=== PATIENT | male | born 1945 | race Caucasian/White ===

== ENCOUNTER 2018-10-12 10:29 | Outpatient (CLI) | payer MEDICARE ==
--- NOTE | 2018-10-12 12:18 | RAD ---
[facility] VIEW ONLY: Date: 10/12/18 HISTORY: MRI safety screening. FINDINGS/IMPRESSION: No radiopaque or metallic foreign body seen. POS: OFF
--- NOTE | 2018-10-12 14:10 | MRI ---
MRI Lumbar Spine WO Con HISTORY:Back pain with bilateral leg radiculopathy. COMPARISON: None. FINDINGS: There is scoliotic change convex to the right. The vertebral bodies are normal in height. G eneralized disc desiccation changes are seen. No significant periaortic adenopathy. The visualized portions of the kidneys are normal. T12-L1: Degenerative facet changes without canal or foraminal narrowing. L1-2: Disc bulge with asymmetric left-sided facet and ligamentous hypertrophic changes. The canal is mildly stenotic and there is mild left foraminal narrowing. L2-3: Facet and ligamentous hypertrophic changes are present which in conjunction with disc bulging c auses a moderately severe degree of canal stenosis. Changes are worse on the left side. There is also moderate left foraminal narrowing. L3-4: Disc bulge as well as facet and ligamentous hypertrophic changes are associated with the severe degree of canal stenosis. Marked right foraminal narrowing is seen with mild left-sided foraminal stenosis. L4-5: Prominent degenerative and facet changes at this level are associated with a moderately severe degree of canal stenosis. Mild bilateral foraminal narrowing is also present. L5-S1: Asymmetric right-sided facet changes are present with mild right foraminal narrowing. No centr al canal stenosis. IMPRESSION: Multilevel areas of canal and foraminal stenosis, the most severe canal stenosis is at L3 -4.
== END 2018-10-12 10:30 | disposition home or self-care (01) ==
LOC: BICMRI 10:29
PROVIDERS: ATTEND Orthopaedic Surgery
DX: M54.16 Radiculopathy, lumbar region (principal); M48.061 Spinal stenosis, lumbar region without neurogenic claudication; M48.07 Spinal stenosis, lumbosacral region
CPT/HCPCS: 70210; 72148

== ENCOUNTER 2019-03-15 08:26 | Outpatient (CLI) | payer MEDICARE ==
[2019-03-15 15:11] LABS: Prothrombin Time 13.4 SEC (12.0-14.7)
[2019-03-15 15:17] LABS: Bacteria/HPF None Seen HPF (None Seen); Bilirubin Negative (Negative); Blood, Urine Negative (Negative); Clarity Clear (Clear); Glucose, Urine (Dipstick) 150 mg/dL (Negative); Leukocyte 25 Leu/uL (Negative); Mucous/LPF 2+ LPF (<2+); Nitrite Negative (Negative); Protein, Urine (Dipstick) 50 mg/dL (Neg-Trace); RBC/HPF 0-3 HPF (0-3); Squamous Epithelial 0-3 HPF (0-3); Urobilinogen Normal mg/dL (Less than 2); WBC/HPF 0-3 HPF (0-3)
[2019-03-15 15:26] LABS: #Eosinphils 0.3 thou/uL (0.0-0.7); #Lymphocytes 1.6 thou/uL (1.20-3.40); #Monocytes 0.5 thou/uL (0.11-0.59); #Neutrophils 4.4 thou/uL (1.40-6.50); %Basophils 0.2 % (0.0-1.0); %Eosinophils 3.8 % (0.0-10.0); %Lymphocytes 23.3 % (21.0-51.0); %Monocytes 7.1 % (0.0-10.0); %Neutrophils 65.7 % (42.0-75.0); Hemoglobin 11.7 g/dL (14.0-18.0); Mean Corpuscular HGB CONC 32.9 g/dL (32.0-36.0); Mean Corpuscular Hemoglobin 29.1 pg (27.0-31.0); Mean Corpuscular Volume 88.6 fL (78.0-98.0); Platelet Count 313 thou/uL (130-400); Red Blood Cell (RBC) Count 4.01 mill/uL (4.70-6.10); White Blood Cell (WBC) Count 6.7 thou/uL (4.8-10.8)
[2019-03-15 15:28] LABS: Anion Gap 13 mmol/L (10-20); BUN (Urea Nitrogen) 24 mg/dL (8.4-25.7); Calc. Creatinine Clearance 0 mL/min (70-130); Calcium 9.7 mg/dL (7.8-10.44); Carbon Dioxide 24 mmol/L (23-31); Chloride 104 mmol/L (98-107); Estimated GFR-MDRD 55; Glucose 123 mg/dL (83-110); Potassium 4.8 mmol/L (3.5-5.1); Sodium 136 mmol/L (136-145)
== END 2019-03-15 08:27 | disposition home or self-care (01) ==
LOC: LABBT 08:26
PROVIDERS: ATTEND Orthopaedic Surgery
DX: Z01.812 Encounter for preprocedural laboratory examination (principal); M17.12 Unilateral primary osteoarthritis, left knee
CPT/HCPCS: 80048; 81001; 85025; 85610; 86850; 86900; 86901; 87081

== ENCOUNTER 2019-03-20 08:57 | Day surgery (SDC) | payer MEDICARE ==
[2019-03-15 12:36] VITALS: BMI 35.2
[2019-03-20] MEDS ORDERED: Tranexamic Acid 1,000 MG/10 ML VIAL ONE (09:32)
[2019-03-20] MEDS ORDERED: Sodium Chloride 0.9% 100 ML ONE (09:32)
[2019-03-20] MEDS ORDERED: Vancomycin HCl 1.5 GM in Sodium Chloride 0.9% 250 ML 300 ML IVPB SCH (09:45)
[2019-03-20] MEDS ORDERED: HYDROcodone/Acetaminophen 10/325 mg Tablet PO PRN (11:15)
[2019-03-20] MEDS ORDERED: diphenhydrAMINE 25 MG CAP PO PRN ×2 (11:15→11:16)
[2019-03-20] MEDS ORDERED: Acetaminophen 325 MG TAB PO PRN (11:15)
[2019-03-20] MEDS ORDERED: Ondansetron PF 4 MG/2 ML Vial IVP PRN (11:15)
[2019-03-20] MEDS ORDERED: Promethazine HCl 25 MG/ML VIAL IM PRN ×2 (11:15→15:39)
[2019-03-20] MEDS ORDERED: Zolpidem Tartrate 5 MG TAB PO PRN (11:15)
[2019-03-20] MEDS ORDERED: Fentanyl 100 MCG/2 ML VIAL ONE ×4 (13:40→16:10)
[2019-03-20] MEDS ORDERED: Bupivacaine HCl 0.5%/Epinephrine 1:200,000/PF 30 ml Vial ONE (15:01)
[2019-03-20] MEDS ORDERED: Ondansetron HCl/PF 4 MG/2 ML Vial IVP PRN (15:39)
[2019-03-20] MEDS ORDERED: Promethazine HCl 25 MG/ML VIAL SLOW IVP PRN (15:39)
--- NOTE | 2019-03-20 16:17 | RAD ---
2 views left knee: 03/20/2019 COMPARISON: None HISTORY: Evaluate knee following arthroplasty FINDINGS: Total knee arthroplasty present on the left. Postoperative gas and fluid noted in the supra patellar bursa. No evidence for acute fracture or dislocation. IMPRESSION: Radiographic evidence of recent left total knee arthroplasty. No acute abnormality.
[2019-03-20] MEDS ORDERED: HYDROcodone/Acetaminophen 10/325 mg Tablet ONE (16:26)
[2019-03-20] MEDS: metFORMIN 500 MG TAB PO SCH (18:15)
[2019-03-20] MEDS: Clindamycin/D5W 900 MG in Premix Bag 1 BAG IVPB SCH ×2 (18:37→23:49)
[2019-03-20] MEDS: Sodium Chloride 0.9% 1,000 ML IV SCH ×2 (18:37→20:39)
--- NOTE | 2019-03-20 19:47 | OP ---
DATE OF PROCEDURE: 03/20/2019 PREOPERATIVE DIAGNOSIS: End-stage tricompartmental osteoarthritis, left knee. POSTOPERATIVE DIAGNOSIS: End-stage tricompartmental osteoarthritis, left knee. PROCEDURE PERFORMED: Cemented cruciate-sparing computer-assisted navigated left total knee arthroplasty. SIGN WRITER LETTERER OR PAINTER: Tahir Weiss PA-C. ANESTHESIA: General via LMA. COMPONENTS USED: [facility] size 6 cruciate sparing cemented primary femoral component with a size 6 primary cemented tibial base plate, 9 mm polyethylene fixed bearing insert, and A38 patella button. TOURNIQUET TIME: 61 minutes at 300 mmHg. INPUT: 1 L of crystalloid. OUTPUT: Not measured. No Castillo placed. ESTIMATED BLOOD LOSS: Less than 100. FINDINGS: End-stage severe degenerative tricompartmental disease, [id number] arthrosis, periarticular osteophyte formation, large serous effusion, hypertrophic synovium, changes consistent with degenerative genu varum. DRAINS: None. SPECIMENS: None. COMPLICATIONS: None. COUNTS: Correct. INDICATIONS FOR SURGERY: Bhavik is a 73-year-old white male, who has had progressive left knee pain and problem with standing and walking for the last 5 to 7 years. He has failed conservative management, elected to proceed with total knee arthroplasty as definitive treatment of his pain. PROCEDURE IN DETAIL: After informed consent was obtained in the preoperative holding area, the patient was taken to the operative suite where general anesthesia was induced. Once adequate level of general anesthesia was obtained, the patient was positioned and a well-padded tourniquet was placed around the left proximal thigh. The left lower extremity was then prepped and draped in the usual sterile fashion. Prior to exsanguination, a time-out was called and all members of the surgical team agreed upon site, surgeon, and patient. The extremity was then exsanguinated and the tourniquet was raised. A midline longitudinal incision was then made directly over the patella extending 2 fingerbreadths above the superior pole of the patella and 2 fingerbreadths inferior to the inferior patellar pole of the patella. Deeper subcutaneous layers were dissected sharply and local bleeding was controlled with Bovie electrocautery. A quad tendon longitudinal split was then made sharply and a median parapatellar arthrotomy was carried out both sharp and with Bovie electrocautery, carried down to 1 fingerbreadth medial to the tibial tubercle. The knee was then placed into flexion and the patella was everted nicely, and a copious fat pad ectomy was performed allowing for greater exposure of the tibia. The computer-assisted distal femoral fiducial was then placed and pinned firmly, and the distal femoral cutting guide was pinned firmly into place. The oscillating saw was then used to remove the appropriate amount of bone. The 4-in-1 cutting block was then placed on the distal femur and the oscillating saw was used to remove the appropriate amount of bone off the anterior, posterior, and chamfer cuts. After completion of bone cuts, the anterior cruciate ligament was resected sharply and the posterior cruciate ligament retractor was placed and the tibia was subluxed for better exposure. Partial meniscectomies were carried out, and the tibial computer-assisted fiducial was pinned, and the cutting guide was placed. Oscillating saw was then used to remove the bone, with Hohmann retractors used to take care and protect the collateral ligaments. After the tibial resection was performed, a laminar wildlife biology internship was placed in between the freshened bone cuts. The knee placed at 90 degrees and further bilateral meniscectomies were carried out, and the curved osteotome and curettage were used to remove any excess bone spurs in the posterior compartment. The trial femoral component, tibial baseplate were placed with the appropriate polyethylene trial insert with an appropriate polyethylene spacer and patellar button. The knee was taken through full range of motion with flexion and extension from 0 to 90 degrees and patellar broach squarely in the trochlea without any squinting or subluxation noted. The knee was also stable to varus and valgus stressing at 0, 15, 45, and 90 degrees of flexion. The drawer was negative. All trial components were then removed and the keel punch was used to provide the appropriate defect in the tibia with a mallet. The freshened bone cuts were copiously irrigated with pulsatile lavage of about 1.5 L to remove all excess debris. The freshened bone cuts were then dried with suction and lap sponge. The knee was placed in flexion and retractors were placed to provide access to all bone cuts. Tobramycin-impregnated methyl methacrylate cement was then placed on the freshened bone cuts and implants which were malleted firmly into place. Curettage and [place] elevators were used to remove any excess bone cement. The knee was placed into full extension and the patellar button was placed under compression, and the cement was allowed to cure. Once completed, the components were again taken through full range of motion and copious irrigation of the knee was carried out with another liter of normal saline. All components were inspected fully with full range of motion and varus and valgus stressing. There was no laxity noted and full extension was observed clinically. Primary closure was accomplished with #2 interrupted Vicryl stitch of the arthrotomy defect. This was oversewn with a #2 running Quill barbed stitch. The gravitational platelet system was then injected into the arthrotomy prior to closure. The subcutaneous layer was then closed with a running 0 barbed Monocryl stitch and skin closure accomplished with a running subcuticular 3-0 Monocryl barbed Quill stitch and augmented with cement on the skin. Tourniquet was lowered. Good spontaneous return of distal pulses was noted clinically and a sterile dressing was applied to the incision. The procedure was terminated without any complications. The patient was awakened in the operative suite, and the patient was taken to the recovery room in stable condition. Job ID: [id number]
[2019-03-20] MEDS: Senokot S 8.6-50 MG TAB PO SCH (20:37)
[2019-03-20] MEDS: Carvedilol 3.125 MG TAB PO SCH (20:37)
[2019-03-20] MEDS: Terazosin HCl 5 MG CAP PO SCH ×2 (20:37→20:38)
[2019-03-20] MEDS: Aspirin 81 mg Enteric Coated Tablet PO SCH ×2 (20:37→20:38)
[2019-03-20] MEDS: Atorvastatin Calcium 40 MG TAB PO SCH (20:37)
[2019-03-20] MEDS: Ferrous Gluconate 324 MG TAB PO SCH (20:37)
[2019-03-20] MEDS: Amlodipine 10 MG TAB PO SCH (20:38)
[2019-03-20] MEDS: Finasteride 5 MG TAB PO SCH (20:38)
[2019-03-20] MEDS ORDERED: Non-Formulary Item 1 EACH (Insulin Detemir [Levemir Flextouch] 20 UNIT) SC SCH (21:00)
[2019-03-20] MEDS: Insulin Glargine 20 UNITS in Pre-Filled Syringe 1 EACH SC SCH (21:55)
[2019-03-20] MEDS: Gabapentin 400 MG CAP PO SCH (21:57)
[2019-03-20] MEDS: HYDROcodone/Acetaminophen 10/325 mg Tablet PO PRN (21:58)
[2019-03-20] MEDS ORDERED: ePHEDrine 50 MG/ML VIAL ONE (22:05)
[2019-03-20] MEDS ORDERED: PROPOFOL 200 MG/20 ML VIAL ONE (22:05)
[2019-03-20] MEDS ORDERED: Lidocaine 1% PF 5 ML VIAL ONE (22:05)
[2019-03-20] MEDS ORDERED: Labetalol HCl 100 MG/20 ML VIAL ONE (22:05)
[2019-03-21] MEDS: HYDROcodone/Acetaminophen 10/325 mg Tablet PO PRN ×5 (02:36→20:48)
[2019-03-21 05:54] LABS: Hemoglobin 10.4 g/dL (14.0-18.0); Mean Corpuscular HGB CONC 32.8 g/dL (32.0-36.0); Mean Corpuscular Hemoglobin 28.9 pg (27.0-31.0); Mean Platelet Volume 7.6 fL (7.4-10.4); Platelet Count 271 thou/uL (130-400); RBC Distribution Width 13.8 % (11.5-14.5); Red Blood Cell (RBC) Count 3.59 mill/uL (4.70-6.10); White Blood Cell (WBC) Count 9.7 thou/uL (4.8-10.8)
[2019-03-21] MEDS: metFORMIN 500 MG TAB PO SCH ×2 (08:43→17:43)
[2019-03-21] MEDS: Gabapentin 400 MG CAP PO SCH ×2 (08:43→20:44)
[2019-03-21] MEDS: Multivitamin W/ Minerals 1 TAB PO SCH (08:44)
[2019-03-21] MEDS: Ferrous Gluconate 324 MG TAB PO SCH ×2 (08:44→20:44)
[2019-03-21] MEDS: Aspirin 81 mg Enteric Coated Tablet PO SCH ×3 (08:44→20:45)
[2019-03-21] MEDS: Isosorbide Mononitrate (ER) 30 MG TAB PO SCH (08:44)
[2019-03-21] MEDS: Carvedilol 3.125 MG TAB PO SCH ×2 (08:44→20:44)
[2019-03-21] MEDS: Losartan 25 MG TAB PO SCH (08:45)
[2019-03-21] MEDS: Senokot S 8.6-50 MG TAB PO SCH ×2 (08:45→20:43)
[2019-03-21] MEDS ORDERED: Gabapentin 400 MG CAP PO SCH (09:00)
[2019-03-21] MEDS ORDERED: Polyethylene Glycol 3350 17 GM Packet PO PRN (09:41)
--- NOTE | 2019-03-21 10:12 | PRG ---
DATE OF SERVICE: 03/21/2019 SUBJECTIVE: Bhavik is a 73-year-old white male, who is postop day 1 from a left total knee arthroplasty. He is doing relatively well this morning. He has no complaints, and he is sitting up for a bowel movement. He has had some gas. OBJECTIVE: VITAL SIGNS: Temperature 98.3, pulse is 56, respiratory rate is 20, and blood pressure is 147/83. GENERAL: He is alert and oriented to person, place, time, and situation. Responsive and appropriate with examiner. Grossly nonfocal. SKIN: His incision is clean. No strikethrough. No erythema. EXTREMITIES: He is neurovascularly intact in both lower extremities. LABORATORY DATA: Hemoglobin and hematocrit 10.4 and 31.6. IMPRESSION: A 73-year-old male, postop day 1, left total knee arthroplasty, doing well. PLAN: Continue current care. Probable discharge tomorrow if his ambulatory effort improves. Job ID: [id number]
[2019-03-21] MEDS: Sodium Chloride 0.9% 1,000 ML IV SCH ×3 (13:49→22:33)
[2019-03-21] MEDS ORDERED: HumaLOG 300 UNITS/3 ML VIAL SC PRN (14:49)
[2019-03-21] MEDS ORDERED: Dextrose 50% Abboject 50 ML SYRINGE SLOW IVP PRN (14:49)
[2019-03-21] MEDS ORDERED: Dextrose 5% in Water 1,000 ML IV PRN (14:49)
[2019-03-21] MEDS ORDERED: Milk Of Magnesia 30 ML UDCUP PO SCH (15:00)
--- NOTE | 2019-03-21 16:19 | CON ---
DATE OF CONSULTATION: 03/21/2019 PRIMARY CARE PROVIDER: Mari Mccracken MD. CHIEF COMPLAINT: Management of medical comorbidities. HISTORY OF PRESENT ILLNESS: Mr. Nathan is a pleasant 73-year-old gentleman, who was seen at [facility] on March 21, 2019. Yesterday, he underwent left total knee arthroplasty. Hospitalist Service was consulted for management of medical comorbidities. Mr. Nathan denies any chest pain or shortness of breath. He denies any fevers or chills. He reports that he had right flank discomfort for several days, but that has improved. He denies any nausea, vomiting, or diarrhea. He reports that pain at the left knee is tolerable. REVIEW OF SYSTEMS: All systems were reviewed and found to be negative except for the pertinent positives mentioned above. PAST MEDICAL HISTORY: Diabetes mellitus, dyslipidemia, hypertension, gastroesophageal reflux disease, obstructive sleep apnea syndrome, coronary artery disease, benign prostate hypertrophy. PAST SURGICAL HISTORY: PCI with coronary stents, tonsillectomy, appendectomy, right hand surgery, right knee surgery, left shoulder surgery, right elbow surgery, nasal surgery, right total knee replacement, right total hip replacement, and left total knee arthroplasty yesterday. ALLERGIES: ETODOLAC. FAMILY HISTORY: No family history of premature coronary artery disease. SOCIAL HISTORY: The patient denies tobacco use, alcohol use, or recreational drug use. HOME MEDICATIONS: 1. [place] p.r.n. 2. Amlodipine 10 mg at bedtime. 3. Aspirin 81 mg daily. 4. Lipitor 40 mg at bedtime. 5. Coreg 3.125 mg 2 times a day. 6. Plavix 75 mg daily. 7. Benadryl 25 mg at bedtime. 8. Finasteride 5 mg at bedtime. 9. Gabapentin 400 mg 2 times a day. 10. Levemir insulin 20 units at bedtime. 11. Isosorbide mononitrate 30 mg daily. 12. Losartan 50 mg daily. 13. Magnesium 500 mg 2 times a day. 14. Metformin 1000 mg 2 times a day. 15. Nitroglycerin p.r.n. 16. Pentoxifylline 400 mg 2 times a day. 17. Terazosin 10 mg daily. PHYSICAL EXAMINATION: GENERAL: On examination, Mr. Nathan is awake and alert, not in acute distress. He is obese, with a BMI of 35.3. VITAL SIGNS: Blood pressure is 102/66, pulse 80, respiratory rate 16, and oxygen saturation 97% on room air. He is afebrile. EYES: No scleral icterus, no conjunctival pallor. ENT: Moist mucosal membranes. No oropharyngeal erythema or exudates. NECK: Supple, nontender, trachea is midline. RESPIRATORY: Accessory muscles of breathing are not active. Chest wall movements are symmetric bilaterally. Lungs are clear to auscultation without wheeze, rhonchi, or crepitations. CARDIOVASCULAR: S1 and S2 are heard, regular. Peripheral pulses palpable. MUSCULOSKELETAL: He is status post left knee surgery. Moving all 4 extremities. ABDOMEN: Soft, nontender, bowel sounds are heard. NEUROLOGIC: Cranial nerves 2 through 12 are intact. SKIN: No rashes or subcutaneous nodules. LYMPHATIC: No cervical lymphadenopathy. PSYCHIATRIC: Normal mood, normal affect, the patient is oriented to person, place, and time. LABORATORY DATA: Mr. Nathan's labs and investigations were reviewed. He has normal white count, normocytic anemia with hemoglobin 10.4, and normal platelet count. Today, Accu-Chek was 137 at 5:47 a.m. Urinalysis on March 15 was negative for nitrite and leukocyte esterase. He had normal creatinine on March 15. ASSESSMENT AND PLAN: Mr. Nathan is a pleasant 73-year-old gentleman, who was seen at [facility] for management of medical comorbidities following left total knee arthroplasty. His problem list includes: 1. Constipation: The patient reports constipation. He reports that he has received sennosides and docusate without any significant relief. We will trial milk of magnesia. If still constipated, will try magnesium citrate. 2. Diabetes mellitus type 2: We will start Accu-Cheks and insulin sliding scale. 3. Coronary artery disease: Stable. Plavix is currently on hold, resumption of Plavix per Orthopedic Surgery Service. 4. Hypertension: Blood pressure is reasonably controlled. Continue amlodipine. Continue Coreg during the perioperative period. 5. Benign prostate hypertrophy: Stable, continue Proscar and terazosin. Many thanks for allowing me to participate in your patient's care. Please feel free to contact me with any questions or concerns. LEVEL OF COMPLEXITY: Low. LEVEL OF RISK: Low. Job ID: [id number]
[2019-03-21] MEDS: Terazosin HCl 5 MG CAP PO SCH ×2 (20:44→20:45)
[2019-03-21] MEDS: Atorvastatin Calcium 40 MG TAB PO SCH (20:44)
[2019-03-21] MEDS: Amlodipine 10 MG TAB PO SCH (20:45)
[2019-03-21] MEDS: Finasteride 5 MG TAB PO SCH (20:45)
[2019-03-21] MEDS: Insulin Glargine 20 UNITS in Pre-Filled Syringe 1 EACH SC SCH (22:05)
[2019-03-22] MEDS: HYDROcodone/Acetaminophen 10/325 mg Tablet PO PRN ×3 (00:49→14:37)
[2019-03-22] MEDS: Gabapentin 400 MG CAP PO SCH (09:27)
[2019-03-22] MEDS: Aspirin 81 mg Enteric Coated Tablet PO SCH (09:27)
[2019-03-22] MEDS: metFORMIN 500 MG TAB PO SCH (09:27)
[2019-03-22] MEDS: Losartan 25 MG TAB PO SCH (09:27)
[2019-03-22] MEDS: Multivitamin W/ Minerals 1 TAB PO SCH (09:28)
[2019-03-22] MEDS: Carvedilol 3.125 MG TAB PO SCH (09:28)
[2019-03-22] MEDS: Senokot S 8.6-50 MG TAB PO SCH (09:28)
[2019-03-22] MEDS: Isosorbide Mononitrate (ER) 30 MG TAB PO SCH (09:28)
[2019-03-22] MEDS: Ferrous Gluconate 324 MG TAB PO SCH (09:28)
[2019-03-22] MEDS ORDERED: Magnesium Citrate 300 ML BOT PO SCH (10:00)
[2019-03-22 10:17] LABS: Hemoglobin 10.2 g/dL (14.0-18.0); Mean Corpuscular HGB CONC 32.5 g/dL (32.0-36.0); Mean Corpuscular Hemoglobin 28.3 pg (27.0-31.0); Mean Corpuscular Volume 87.1 fL (78.0-98.0); Mean Platelet Volume 7.9 fL (7.4-10.4); Platelet Count 277 thou/uL (130-400); RBC Distribution Width 13.8 % (11.5-14.5); White Blood Cell (WBC) Count 8.8 thou/uL (4.8-10.8)
[2019-03-22 12:04] VITALS: BP 135/72; TEMP 98.3
[2019-03-22] MEDS: Sodium Chloride 0.9% 1,000 ML IV SCH (13:17)
== END 2019-03-22 14:45 | disposition home or self-care (01) ==
LOC: SDC 08:57 → SURG A 11:15 → SDC 03-22 14:45
PROVIDERS: ATTEND Orthopaedic Surgery
PROC: 0SRD0J9 Replacement of Left Knee Joint with Synthetic Substitute, Cemented, Open Approach (ICD-10-PCS; principal; 2019-03-20)
DX: M17.12 Unilateral primary osteoarthritis, left knee (principal); I10 Essential (primary) hypertension; E11.9 Type 2 diabetes mellitus without complications; E78.5 Hyperlipidemia, unspecified; G47.33 Obstructive sleep apnea (adult) (pediatric); K59.00 Constipation, unspecified; N40.0 Benign prostatic hyperplasia without lower urinary tract symptoms; Z79.4 Long term (current) use of insulin; Z79.82 Long term (current) use of aspirin; Z79.899 Other long term (current) drug therapy; Z88.8 Allergy status to other drugs, medicaments and biological substances
CPT/HCPCS: 27447; 73560; 82962; 85027; 97116 ×2; 97139 ×4; 97150 ×2; 97530; 98961; C1713; C1776; 36415; 36416; J0670; J0690; J1815; J2001; J2704; J3010; J3370; J3490; J7050; Q0163

== ENCOUNTER 2019-06-15 09:39 | Outpatient (CLI) | payer MEDICARE ==
--- NOTE | 2019-06-15 11:09 | MRI ---
EXAM: MRI left shoulder PROVIDED CLINICAL HISTORY: Pain COMPARISON: None FINDINGS: There is high-grade partial-thickness bursal surface tearing involving the supraspinatus tendon at th e footplate. This is superimposed upon changes of conjoined tendinosis and probable chronic partial thickness bursal surface tearing subjacent to the acromion. Partial thickness low-grade undersurface tearing involving the cranial fibers of the distal subscapularis also suspected. Evaluation is limited by patient motion. The glenoid labrum and glenohumeral articular cartilage are suboptimally evaluated in the absence of joint distention. There is signal alteration involving the superior, posterior and inferior labrum compatible with nondisplaced tearing. There is a paralabral c yst inferior to the glenoid just posterior to the 6:00 position. No focal articular cartilage defect is apparent. The amount of fluid within the glenohumeral joint is physiologic. There is greater than physiologic s ubacromial subdeltoid bursal fluid. Acromioclavicular joint osteoarthrosis is demonstrated with mass effect upon the subjacent supraspina tus. Rotator cuff muscular volume appears preserved. No focal concerning regional marrow or muscular signal abnormality apparent. IMPRESSION: 1. Tears of the supraspinatus tendon as described. 2. Suspected low-grade partial thickness undersurface tearing involving the cranial fibers of the sub scapularis near the insertion. 3. Superior, posterior and inferior glenoid labral tear with associated para labral cyst. 4. Prominent acromioclavicular joint osteoarthrosis with mass effect upon the subjacent supraspinatus . 5. Greater than physiologic subacromial subdeltoid bursal fluid, which may reflect bursitis and/or an occult full-thickness component to one of the described tears.
== END 2019-06-15 09:40 | disposition home or self-care (01) ==
LOC: BICMRI 09:39
PROVIDERS: ATTEND Orthopaedic Surgery
DX: M75.102 Unspecified rotator cuff tear or rupture of left shoulder, not specified as traumatic (principal); S46.012A Strain of muscle(s) and tendon(s) of the rotator cuff of left shoulder, initial encounter; M19.012 Primary osteoarthritis, left shoulder; S43.432A Superior glenoid labrum lesion of left shoulder, initial encounter

== ENCOUNTER 2020-09-18 12:41 | Outpatient (CLI) | payer MEDICARE ==
[2020-09-18 15:44] LABS: Mean Corpuscular HGB CONC 30.3 g/dL (32.0-36.0); Mean Corpuscular Hemoglobin 25.9 pg (27.0-33.0); Mean Corpuscular Volume 85.5 fl (81.2-95.1); Mean Platelet Volume 10.3 fl (7.4-10.4); Platelet Count 320 10x3/uL (150-450); RBC Distribution Width 15.6 % (11.5-14.5); Red Blood Cell (RBC) Count 3.86 10x6/uL (4.32-5.72); White Blood Cell (WBC) Count 5.7 10x3/uL (3.5-10.5)
[2020-09-18 16:03] LABS: Anion Gap 14 mmol/L (10-20); BUN (Urea Nitrogen) 16 mg/dL (8.4-25.7); Calc. Creatinine Clearance 0 mL/min (70-130); Calcium 9.1 mg/dL (7.8-10.44); Carbon Dioxide 23 mmol/L (23-31); Chloride 108 mmol/L (98-107); Glucose 111 mg/dL (83-110); Potassium 4.5 mmol/L (3.5-5.1); Sodium 140 mmol/L (136-145)
[2020-09-18 16:19] LABS: Bilirubin Neg (Negative); Blood, Urine Negative (Negative); Clarity Clear (Clear); Glucose, Urine (Dipstick) Normal (Negative); Ketone, Urine Negative (Negative); Leukocyte Negative (Negative); Nitrite Negative (Negative); Protein, Urine (Dipstick) Negative (Neg-Trace); Specific Gravity, Urine 1.015 (1.002-1.036); Urobilinogen Normal mg/dL (Less than 2)
[2020-09-18 16:34] LABS: Bacteria/HPF Rare-Few HPF (None Seen); RBC/HPF 0-3 HPF (0-3); Squamous Epithelial 0-3 HPF (0-3); WBC/HPF 0-3 HPF (0-3)
[2020-09-19 04:28] LABS: SARS-CoV-2 PCR by NAA Not Detected (NotDetected)
== END 2020-09-18 12:42 | disposition home or self-care (01) ==
LOC: LABBT 12:41
PROVIDERS: ATTEND Urology
DX: Z01.818 Encounter for other preprocedural examination (principal); E11.22 Type 2 diabetes mellitus with diabetic chronic kidney disease; N18.9 Chronic kidney disease, unspecified; N40.1 Benign prostatic hyperplasia with lower urinary tract symptoms; N52.01 Erectile dysfunction due to arterial insufficiency; E29.1 Testicular hypofunction; I25.10 Atherosclerotic heart disease of native coronary artery without angina pectoris; Z20.822 Contact with and (suspected) exposure to COVID-19; Z79.4 Long term (current) use of insulin
CPT/HCPCS: 80048; 81001; 85027; 87086; 93005; U0003; U0005; 87635; 93010

== ENCOUNTER 2020-11-25 10:27 | Outpatient (CLI) | payer MEDICARE ==
[2020-11-25 13:15] LABS: #Eosinphils 0.4 10x3/uL (0.0-0.5); #Monocytes 0.4 10x3/uL (0.0-1.1); #Neutrophils 2.8 10x3/uL (1.5-8.4); %Basophils 0.8 % (0.0-2.0); %Lymphocytes 29.9 % (18.0-47.0); %Neutrophils 54.1 % (40.0-75.0); Hemoglobin 9.8 g/dL (13.5-17.5); Mean Corpuscular Hemoglobin 25.1 pg (27.0-33.0); Mean Corpuscular Volume 80.8 fl (81.2-95.1); Mean Platelet Volume 10.7 fl (7.4-10.4); Platelet Count 304 10x3/uL (150-450); RBC Distribution Width 16.3 % (11.5-14.5); Red Blood Cell (RBC) Count 3.91 10x6/uL (4.32-5.72); White Blood Cell (WBC) Count 5.3 10x3/uL (3.5-10.5)
[2020-11-25 13:24] LABS: Anion Gap 14 mmol/L (10-20); BUN (Urea Nitrogen) 26 mg/dL (8.4-25.7); Calc. Creatinine Clearance 0 mL/min (70-130); Calcium 9.6 mg/dL (7.8-10.44); Carbon Dioxide 20 mmol/L (23-31); Chloride 109 mmol/L (98-107); Glucose 162 mg/dL (83-110); Potassium 4.6 mmol/L (3.5-5.1); Sodium 138 mmol/L (136-145)
[2020-11-25 13:27] LABS: Bilirubin Neg (Negative); Blood, Urine Negative (Negative); Clarity Clear (Clear); Glucose, Urine (Dipstick) Normal (Negative); Ketone, Urine Negative (Negative); Leukocyte Negative (Negative); Nitrite Negative (Negative); Protein, Urine (Dipstick) Negative (Neg-Trace); Specific Gravity, Urine 1.015 (1.002-1.036); Urobilinogen Normal mg/dL (Less than 2)
[2020-11-25 13:44] LABS: RBC/HPF None Seen HPF (0-3); Squamous Epithelial 0-3 HPF (0-3); WBC/HPF None Seen HPF (0-3)
[2020-11-25 13:45] LABS: Bacteria/HPF None Seen HPF (None Seen)
[2020-11-26 07:04] LABS: SARS-CoV-2 NAA Rapid Test Not Detected (NotDetected)
== END 2020-11-25 10:28 | disposition home or self-care (01) ==
LOC: LABBT 10:27
PROVIDERS: ATTEND Urology
DX: Z01.818 Encounter for other preprocedural examination (principal); E11.22 Type 2 diabetes mellitus with diabetic chronic kidney disease; I25.10 Atherosclerotic heart disease of native coronary artery without angina pectoris; N52.01 Erectile dysfunction due to arterial insufficiency; N40.1 Benign prostatic hyperplasia with lower urinary tract symptoms; E29.1 Testicular hypofunction; Z79.4 Long term (current) use of insulin
CPT/HCPCS: 80048; 81001; 85025; 87086; 93005; U0002; U0005; 93010

== ENCOUNTER 2020-11-28 08:04 | Day surgery (SDC) | payer MEDICARE ==
[2020-11-26 15:19] VITALS: BMI 35.9
[2020-11-28] MEDS ORDERED: Levofloxacin 500 mg/D5W 100 ml Premix Bag ONE (08:30)
[2020-11-28] MEDS ORDERED: PROPOFOL 200 MG/20 ML VIAL ONE (09:57)
[2020-11-28] MEDS ORDERED: Glycopyrrolate 0.2 MG/ML 5 ML SYRINGE ONE (09:57)
[2020-11-28] MEDS ORDERED: Lidocaine 1% PF 5 ML VIAL ONE (09:57)
[2020-11-28] MEDS ORDERED: Ondansetron PF 4 MG/2 ML Vial ONE (09:57)
[2020-11-28] MEDS ORDERED: Phenazopyridine HCl 100 MG TAB ONE (10:30)
[2020-11-28] MEDS ORDERED: Ketorolac Tromethamine 30 MG/ML VIAL ONE (10:30)
[2020-11-28] MEDS ORDERED: Oxybutynin 5 MG TAB ONE (10:31)
== END 2020-11-28 14:45 | disposition home or self-care (01) ==
LOC: SDC 08:04
PROVIDERS: ATTEND Urology
PROC: 0T7D8DZ Dilation of Urethra with Intraluminal Device, Via Natural or Artificial Opening Endoscopic (ICD-10-PCS; principal; 2020-11-28)
DX: N40.1 Benign prostatic hyperplasia with lower urinary tract symptoms (principal); N13.8 Other obstructive and reflux uropathy; N32.89 Other specified disorders of bladder; G47.33 Obstructive sleep apnea (adult) (pediatric); E78.5 Hyperlipidemia, unspecified; I10 Essential (primary) hypertension; E11.9 Type 2 diabetes mellitus without complications; M19.90 Unspecified osteoarthritis, unspecified site; I25.10 Atherosclerotic heart disease of native coronary artery without angina pectoris; Z79.02 Long term (current) use of antithrombotics/antiplatelets; Z79.4 Long term (current) use of insulin; Z79.82 Long term (current) use of aspirin; Z79.899 Other long term (current) drug therapy; Z88.6 Allergy status to analgesic agent; Z95.5 Presence of coronary angioplasty implant and graft
CPT/HCPCS: 82962; C9740; L8699; 36416; J1885; J1956; J2405; J2704

== ENCOUNTER 2021-05-28 09:37 | Outpatient (CLI) | payer MEDICARE | END 2021-05-28 09:38 | disposition home or self-care (01) | LOC: RAD 09:37 | PROVIDERS: ATTEND Internal Medicine Critical Care Medicine | DX: R06.00 Dyspnea, unspecified (principal) | CPT/HCPCS: 71046 ==

== ENCOUNTER 2022-01-25 10:38 | Outpatient (CLI) | payer MEDICARE ==
[2022-01-25 12:01] LABS: Hemoglobin 10.5 g/dL (13.5-17.5); Mean Corpuscular HGB CONC 31.3 g/dL (32.0-36.0); Mean Corpuscular Hemoglobin 26.3 pg (27.0-33.0); Mean Platelet Volume 9.8 fl (7.4-10.4); Platelet Count 366 10x3/uL (150-450); RBC Distribution Width 17.7 % (11.5-14.5); White Blood Cell (WBC) Count 6.9 10x3/uL (3.5-10.5)
[2022-01-25 12:20] LABS: INR-International Normal Ratio 0.9; PTT 26.5 sec (22.0-33.0); Prothrombin Time 10.2 sec (9.5-12.1)
[2022-01-25 12:26] LABS: Anion Gap 14 mmol/L (10-20); BUN (Urea Nitrogen) 22 mg/dL (8.4-25.7); Calc. Creatinine Clearance 0 mL/min (70-130); Calcium 9.5 mg/dL (7.8-10.44); Carbon Dioxide 22 mmol/L (23-31); Chloride 107 mmol/L (98-107); Estimated GFR 68; Glucose 187 mg/dL (83-110); Potassium 4.8 mmol/L (3.5-5.1); Sodium 138 mmol/L (136-145)
== END 2022-01-25 10:39 | disposition home or self-care (01) ==
LOC: LABBT 10:38
PROVIDERS: ATTEND Surgery
DX: Z01.812 Encounter for preprocedural laboratory examination (principal); M48.062 Spinal stenosis, lumbar region with neurogenic claudication; M54.16 Radiculopathy, lumbar region; M41.9 Scoliosis, unspecified; Z20.822 Contact with and (suspected) exposure to COVID-19
CPT/HCPCS: 80048; 85027; 85610; 85730; 87811

== ENCOUNTER 2022-02-02 13:06 | Outpatient (CLI) | payer MEDICARE ==
[2022-02-02 14:13] LABS: Hemoglobin 10.7 g/dL (13.5-17.5); Mean Corpuscular HGB CONC 32.1 g/dL (32.0-36.0); Mean Corpuscular Hemoglobin 26.6 pg (27.0-33.0); Mean Corpuscular Volume 82.6 fl (81.2-95.1); Mean Platelet Volume 9.9 fl (7.4-10.4); Platelet Count 301 10x3/uL (150-450); RBC Distribution Width 17.6 % (11.5-14.5); Red Blood Cell (RBC) Count 4.03 10x6/uL (4.32-5.72); White Blood Cell (WBC) Count 6.4 10x3/uL (3.5-10.5)
[2022-02-02 14:25] LABS: INR-International Normal Ratio 0.9; PTT 26.9 sec (22.0-33.0); Prothrombin Time 10.3 sec (9.5-12.1)
[2022-02-02 14:43] LABS: Anion Gap 15 mmol/L (10-20); BUN (Urea Nitrogen) 29 mg/dL (8.4-25.7); Calc. Creatinine Clearance 0 mL/min (70-130); Calcium 9.8 mg/dL (7.8-10.44); Carbon Dioxide 24 mmol/L (23-31); Chloride 106 mmol/L (98-107); Estimated GFR 73; Glucose 90 mg/dL (83-110); Potassium 4.7 mmol/L (3.5-5.1); Sodium 140 mmol/L (136-145)
== END 2022-02-02 13:07 | disposition home or self-care (01) ==
LOC: LABBT 13:06
PROVIDERS: ATTEND Surgery
DX: Z01.812 Encounter for preprocedural laboratory examination (principal); M54.16 Radiculopathy, lumbar region; M48.062 Spinal stenosis, lumbar region with neurogenic claudication; M41.9 Scoliosis, unspecified; Z20.822 Contact with and (suspected) exposure to COVID-19
CPT/HCPCS: 80048; 85027; 85610; 85730; 87811

== ENCOUNTER 2022-02-04 07:49 | Inpatient (IN) | payer MEDICARE ==
[2022-02-03 09:56] VITALS: BMI 39.1
[2022-02-04] MEDS ORDERED: Sodium Chloride 0.9% 100 ML ONE (08:19)
[2022-02-04] MEDS ORDERED: CEFAZOLIN 2 GM VIAL ONE (08:19)
[2022-02-04] MEDS ORDERED: Lidocaine 1% MPF 2 ML VIAL ONE (08:19)
[2022-02-04] MEDS ORDERED: fentaNYL Citrate/PF 100 MCG/2 ML SYRINGE ONE (08:35)
[2022-02-04] MEDS ORDERED: Thrombin 5000 UNITS/5 ML VIAL ONE (08:37)
[2022-02-04] MEDS ORDERED: Lidocaine 1% PF 5 ML VIAL ONE (09:13)
[2022-02-04] MEDS ORDERED: Neostigmine Methylsulfate 3 MG/3 ML SYRINGE ONE (09:13)
[2022-02-04] MEDS ORDERED: Dexamethasone 20 MG/5 ML VIAL ONE (09:13)
[2022-02-04] MEDS ORDERED: Rocuronium Bromide 10 MG/ML (10ML VIAL) ONE (09:13)
[2022-02-04] MEDS ORDERED: Ondansetron PF 4 MG/2 ML Vial ONE (09:13)
[2022-02-04] MEDS ORDERED: PROPOFOL 200 MG/20 ML VIAL ONE (09:13)
[2022-02-04] MEDS ORDERED: Glycopyrrolate 0.2 MG/ML 5 ML SYRINGE ONE (09:13)
[2022-02-04] MEDS ORDERED: HYDROmorphone 2 MG/ML VIAL ONE (12:18)
[2022-02-04] MEDS ORDERED: diphenhydrAMINE 25 MG CAP PO PRN ×2 (12:39→12:43)
[2022-02-04] MEDS ORDERED: Acetaminophen 325 MG TAB PO PRN (12:39)
[2022-02-04] MEDS ORDERED: Morphine 2 MG/ML VIAL SLOW IVP PRN (12:39)
[2022-02-04] MEDS ORDERED: Ondansetron PF 4 MG/2 ML Vial IVP PRN (12:39)
[2022-02-04] MEDS ORDERED: traMADol HCl 50 MG TAB PO PRN (12:39)
[2022-02-04] MEDS ORDERED: hydrALAZINE 20 MG/ML VIAL SLOW IVP PRN (12:44)
[2022-02-04] MEDS ORDERED: HYDROmorphone 2 MG/ML VIAL SLOW IVP PRN (12:44)
[2022-02-04] MEDS ORDERED: Promethazine HCl 25 MG/ML VIAL IVPB PRN (12:44)
[2022-02-04] MEDS ORDERED: Promethazine HCl 25 MG/ML VIAL IM PRN (12:44)
[2022-02-04] MEDS ORDERED: Ondansetron HCl/PF 4 MG/2 ML Vial IVP PRN (12:44)
[2022-02-04] MEDS ORDERED: ceFAZolin 2 GM/Dextrose 50 ML 2 GM in Premix Bag 1 BAG IVPB SCH (12:45)
[2022-02-04] MEDS ORDERED: HYDROmorphone 0.5 MG/0.5 ML SYRINGE ONE (12:57)
[2022-02-04] MEDS ORDERED: Fentanyl 100 MCG/2 ML VIAL ONE ×2 (13:10→13:34)
[2022-02-04] MEDS: Sodium Chloride 0.9% 1,000 ML IV SCH (14:32)
[2022-02-04] MEDS: CEFAZOLIN 2 GM in Sodium Chloride 0.9% 100 ML IVPB SCH (15:32)
[2022-02-04] MEDS: HYDROcodone/Acetaminophen 7.5/325 mg Tablet PO PRN ×2 (15:32→20:34)
[2022-02-04] MEDS: metFORMIN XR 500 MG TAB PO SCH (20:33)
[2022-02-04] MEDS: Trospium 20 MG TAB PO SCH (20:33)
[2022-02-04] MEDS: Atorvastatin Calcium 40 MG TAB PO SCH (20:33)
[2022-02-04] MEDS: Insulin Glargine 30 UNITS/0.3 ML VIAL SC SCH (20:33)
[2022-02-04] MEDS ORDERED: Non-Formulary Item 1 EACH (Insulin Detemir [Levemir Flextouch] 100 UNIT/ML Insuln.Pen) SC SCH (21:00)
[2022-02-04] MEDS ORDERED: Non-Formulary Item 1 EACH (Metformin Hcl [Metformin Hcl Er] 750 MG Tab.Er.24h) PO SCH (21:00)
[2022-02-04] MEDS ORDERED: Amlodipine 10 MG TAB PO SCH (21:00)
[2022-02-05] MEDS: CEFAZOLIN 2 GM in Sodium Chloride 0.9% 100 ML IVPB SCH (00:03)
[2022-02-05] MEDS: Sodium Chloride 0.9% 1,000 ML IV SCH ×2 (02:02→14:12)
[2022-02-05 06:15] LABS: #Lymphocytes 1.2 thou/uL (1.20-3.40); #Monocytes 1.3 thou/uL (0.11-0.59); #Neutrophils 7.9 thou/uL (1.40-6.50); %Basophils 0.2 % (0.0-1.0); %Eosinophils 0.1 % (0.0-10.0); %Lymphocytes 11.1 % (21.0-51.0); %Monocytes 12.4 % (0.0-10.0); %Neutrophils 76.2 % (42.0-75.0); Mean Corpuscular HGB CONC 31.5 g/dL (32.0-36.0); Mean Corpuscular Hemoglobin 27.3 pg (27.0-31.0); Mean Corpuscular Volume 86.7 fL (78.0-98.0); Mean Platelet Volume 7.5 fL (7.4-10.4); Platelet Count 262 thou/uL (130-400); RBC Distribution Width 15.5 % (11.5-14.5); White Blood Cell (WBC) Count 10.3 thou/uL (4.8-10.8)
[2022-02-05 06:34] LABS: Anion Gap 14 mmol/L (10-20); BUN (Urea Nitrogen) 27 mg/dL (8.4-25.7); Calc. Creatinine Clearance 101 mL/min (70-130); Calcium 8.7 mg/dL (7.8-10.44); Carbon Dioxide 22 mmol/L (23-31); Chloride 105 mmol/L (98-107); Estimated GFR 73; Glucose 138 mg/dL (83-110); Potassium 4.6 mmol/L (3.5-5.1); Sodium 136 mmol/L (136-145)
[2022-02-05] MEDS: HYDROcodone/Acetaminophen 7.5/325 mg Tablet PO PRN ×2 (07:25→17:35)
[2022-02-05] MEDS ORDERED: SOLIFENACIN SUCCINATE 10 MG PO SCH (09:00)
[2022-02-05] MEDS: Trospium 20 MG TAB PO SCH ×2 (11:06→21:52)
[2022-02-05] MEDS: Acetaminophen/Codeine 30-300mg Tablet PO PRN ×2 (11:07→21:54)
[2022-02-05] MEDS: Amlodipine 5 MG TAB PO SCH (11:07)
[2022-02-05] MEDS: Carvedilol 6.25 MG TAB PO SCH (11:07)
[2022-02-05] MEDS: glipiZIDE 5 MG TAB PO SCH (11:07)
[2022-02-05] MEDS: metFORMIN XR 500 MG TAB PO SCH (21:53)
[2022-02-05] MEDS: Atorvastatin Calcium 40 MG TAB PO SCH (21:54)
[2022-02-05] MEDS: tiZANidine HCl 4 MG TAB PO PRN (21:55)
[2022-02-05] MEDS: Insulin Glargine 30 UNITS/0.3 ML VIAL SC SCH (21:56)
[2022-02-06] MEDS: HYDROcodone/Acetaminophen 7.5/325 mg Tablet PO PRN ×3 (02:33→16:12)
[2022-02-06] MEDS: Sodium Chloride 0.9% 1,000 ML IV SCH ×2 (06:25→18:22)
[2022-02-06] MEDS: Amlodipine 5 MG TAB PO SCH (09:18)
[2022-02-06] MEDS: glipiZIDE 5 MG TAB PO SCH (09:18)
[2022-02-06] MEDS: Carvedilol 6.25 MG TAB PO SCH ×2 (09:18→09:22)
[2022-02-06] MEDS: Trospium 20 MG TAB PO SCH ×2 (09:18→21:31)
[2022-02-06] MEDS: tiZANidine HCl 4 MG TAB PO PRN (16:12)
[2022-02-06] MEDS: Acetaminophen/Codeine 30-300mg Tablet PO PRN (19:33)
[2022-02-06] MEDS: metFORMIN XR 500 MG TAB PO SCH (21:30)
[2022-02-06] MEDS: Insulin Glargine 30 UNITS/0.3 ML VIAL SC SCH (21:32)
[2022-02-06] MEDS: Atorvastatin Calcium 40 MG TAB PO SCH (21:32)
[2022-02-07] MEDS: tiZANidine HCl 4 MG TAB PO PRN ×2 (03:15→20:26)
[2022-02-07] MEDS: HYDROcodone/Acetaminophen 7.5/325 mg Tablet PO PRN ×2 (03:15→20:24)
[2022-02-07] MEDS: Acetaminophen/Codeine 30-300mg Tablet PO PRN ×2 (04:29→09:23)
[2022-02-07] MEDS: Carvedilol 6.25 MG TAB PO SCH (09:23)
[2022-02-07] MEDS: Amlodipine 5 MG TAB PO SCH (09:23)
[2022-02-07] MEDS: glipiZIDE 5 MG TAB PO SCH (09:24)
[2022-02-07] MEDS: Sodium Chloride 0.9% 1,000 ML IV SCH ×2 (09:27→23:21)
[2022-02-07] MEDS: Trospium 20 MG TAB PO SCH ×2 (09:29→20:26)
[2022-02-07] MEDS ORDERED: Milk Of Magnesia 30 ML UDCUP PO PRN (15:52)
[2022-02-07] MEDS ORDERED: Polyethylene Glycol 3350 17 GM Packet PO SCH (16:00)
[2022-02-07] MEDS: metFORMIN XR 500 MG TAB PO SCH (20:26)
[2022-02-07] MEDS: Atorvastatin Calcium 40 MG TAB PO SCH (20:26)
[2022-02-07] MEDS: Insulin Glargine 30 UNITS/0.3 ML VIAL SC SCH (20:28)
[2022-02-08] MEDS: Acetaminophen/Codeine 30-300mg Tablet PO PRN ×2 (01:08→17:00)
[2022-02-08] MEDS: HYDROcodone/Acetaminophen 7.5/325 mg Tablet PO PRN ×2 (05:56→14:35)
[2022-02-08] MEDS: tiZANidine HCl 4 MG TAB PO PRN (05:57)
[2022-02-08] MEDS ORDERED: Polyethylene Glycol 3350 17 GM Packet PO SCH (09:00)
[2022-02-08] MEDS: Trospium 20 MG TAB PO SCH (09:00)
[2022-02-08] MEDS: Amlodipine 5 MG TAB PO SCH (09:18)
[2022-02-08] MEDS: glipiZIDE 5 MG TAB PO SCH (09:18)
[2022-02-08] MEDS: Carvedilol 6.25 MG TAB PO SCH (09:18)
[2022-02-08 11:43] VITALS: TEMP 98
[2022-02-08] MEDS: Sodium Chloride 0.9% 1,000 ML IV SCH (14:38)
[2022-02-08 15:59] VITALS: BP 166/65
== END 2022-02-08 19:15 | disposition home health service (06) | DRG 520 ==
LOC: SDC 07:49 → SJJU 12:46 → OBSVTOIN 02-07 17:16
PROVIDERS: ADMIT Surgery; ATTEND Surgery
PROC: 01NB0ZZ Release Lumbar Nerve, Open Approach (ICD-10-PCS; principal; 2022-02-04)
PROC: 00NY0ZZ Release Lumbar Spinal Cord, Open Approach (ICD-10-PCS; 2022-02-04)
PROC: 30233N1 Transfusion of Nonautologous Red Blood Cells into Peripheral Vein, Percutaneous Approach (ICD-10-PCS; 2022-02-05)
DX: M48.062 Spinal stenosis, lumbar region with neurogenic claudication (principal); M54.16 Radiculopathy, lumbar region; M41.9 Scoliosis, unspecified; D64.9 Anemia, unspecified; E11.9 Type 2 diabetes mellitus without complications; I10 Essential (primary) hypertension; E78.5 Hyperlipidemia, unspecified; N40.0 Benign prostatic hyperplasia without lower urinary tract symptoms; G47.30 Sleep apnea, unspecified; Z96.641 Presence of right artificial hip joint; Z96.653 Presence of artificial knee joint, bilateral; Z82.49 Family history of ischemic heart disease and other diseases of the circulatory system; Z98.890 Other specified postprocedural states; Z80.9 Family history of malignant neoplasm, unspecified; Z88.8 Allergy status to other drugs, medicaments and biological substances; Z90.89 Acquired absence of other organs; Z95.5 Presence of coronary angioplasty implant and graft; Z79.01 Long term (current) use of anticoagulants; Z79.899 Other long term (current) drug therapy
CPT/HCPCS: 36415; 36416; 36430; 76000; 80048; 85025; 86850; 86900; 86901; J0690; J1100; J1170; J1815; J2405; J2704; J3010; J3370; J3490; P9016

== ENCOUNTER 2022-06-02 07:31 | Outpatient (CLI) | payer MEDICARE | END 2022-06-02 07:32 | disposition home or self-care (01) | LOC: NM 07:31 | PROVIDERS: ATTEND Orthopaedic Surgery | DX: Z96.641 Presence of right artificial hip joint (principal) | CPT/HCPCS: 78315; A9503 ==